=== PATIENT | male | born 1975 | race Caucasian/White ===

== ENCOUNTER 2024-06-17 18:17 | Inpatient (IN) | payer BC ==
[~2024-06-17] VITALS: Ht 190.5 cm; Wt 106.6 kg
[2024-06-17 18:44] VITALS: TEMP 98.9
[2024-06-17 19:02] LABS: BASOPHILS % 0.2 % (0.0-1.0); EOSINOPHILS # (AUTO) 0.1 (0.0-0.4); EOSINOPHILS % 0.4 % (0.0-6.0); HEMATOCRIT 49.5 % (38.2-49.6); HEMOGLOBIN 17.3 g/dL (14.0-18.0); LYMPHOCYTES # (AUTO) 2.3 (1.0-3.2); LYMPHOCYTES % 20.1 % (18.0-39.1); MEAN CORPUSCULAR HEMOGLOBIN 31.8 pg (28-32); MEAN CORPUSCULAR HGB CONC 34.9 g/dL (31-35); MONOCYTES # (AUTO) 0.7 (0.2-0.8); MONOCYTES % 5.7 % (4.4-11.3); NEUTROPHILS # (AUTO) 8.4 (2.1-6.9); NEUTROPHILS % 73.2 % (38.7-80.0); PLATELET COUNT 272 x10e3/uL (140-360); RED BLOOD COUNT 5.44 x10e6/uL (4.3-5.7); RED CELL DISTRIBUTION WIDTH 12.4 % (11.7-14.4); WHITE BLOOD COUNT 11.49 x10e3/uL (4.8-10.8)
[2024-06-17 19:18] LABS: ALBUMIN 4.9 g/dL (3.5-5.0); ALBUMIN/GLOBULIN RATIO 1.7 (0.8-2.0); CALCIUM 10.4 mg/dL (8.4-10.2); CREATININE, SERUM 0.95 mg/dL (0.72-1.25); TOTAL PROTEIN 7.8 g/dL (6.5-8.1)
[2024-06-17] MEDS ORDERED: IOPAMIDOL 370 MG/ML 100 ML INFUS..BTL INJ ONE (19:29)
[2024-06-17] MEDS: SODIUM CHLORIDE 0.9% 1000ML 1,000 ML IV ONE (20:20)
[2024-06-17 20:21] VITALS: PULSE 95; RESP 20
[2024-06-17 20:55] LABS: BILIRUBIN,URINE NEGATIVE (NEGATIVE); CLARITY,URINE SL CLOUDY (CLEAR); COLOR,URINE YELLOW (YELLOW); GLUCOSE, URINE 500 (NEGATIVE); KETONES,URINE TRACE (NEGATIVE); LEUKOCYTE ESTERASE ,URINE NEGATIVE (NEGATIVE); NITRITE,URINE NEGATIVE (NEGATIVE); PH,URINE 5.5 (5 - 7); PROTEIN,URINE DIPSTICK NEGATIVE (NEGATIVE); URINE UROBILINOGEN 0.2 mg/dL (0.2 - 1)
[2024-06-17 21:10] LABS: BACTERIA,URINE MODERATE /HPF; EPITHELIAL CELLS,URINE MODERATE /LPF
[2024-06-17] MEDS: Morphine 4mg INJECTION 4 MG/ML INJ IV ONE (21:13)
[2024-06-17] MEDS: SODIUM CHLORIDE 0.9% 250ML IRRIG IR SCH (21:30)
[2024-06-17] MEDS ORDERED: ONDANSETRON HCL INJ 2MG/ML 2ML 2 MG/ML VIAL IV PRN (22:00)
[2024-06-17] MEDS: BENZOCAINE 20% SPR 60 ML CAN MT ONE (23:09)
[2024-06-17] MEDS: ONDANSETRON HCL INJ 2MG/ML 2ML 2 MG/ML VIAL IV STA (23:43)
[2024-06-17] MEDS ORDERED: LABETALOL HCL 20 ML ONE (23:54)
[2024-06-18] VITALS (7 sets, daily range): BP systolic 169–192; BP diastolic 96–114; PULSE 85–110; RESP 16–20; TEMP 97.5–98.2; O2SAT 95–99
[2024-06-18] MEDS: LABETALOL HCL 5 MG/ML 20ML VIAL IV PRN (00:10)
[2024-06-18] MEDS: KETOROLAC TROMETHAMINE 30 MG/ML VIAL IV STA (00:25)
[2024-06-18] MEDS: SODIUM CHLORIDE 0.9% 1000ML 1,000 ML IV SCH ×2 (00:27→21:16)
[2024-06-18] MEDS: Morphine 4mg INJECTION 4 MG/ML INJ IV PRN (01:39)
[2024-06-18] MEDS ORDERED: ROSUVASTATIN CA20 MG PO (01:46)
[2024-06-18] MEDS ORDERED: LOSARTAN POTAS100 MG PO (01:46)
[2024-06-18] MEDS ORDERED: CARVEDILOL3.125 MG PO (01:46)
[2024-06-18] MEDS ORDERED: XIGDUO XR 10 M1 EAC1 PO (01:46)
[2024-06-18 05:41] LABS: BASOPHILS % 0.2 % (0.0-1.0); EOSINOPHILS % 0.3 % (0.0-6.0); HEMATOCRIT 49.1 % (38.2-49.6); HEMOGLOBIN 16.7 g/dL (14.0-18.0); LYMPHOCYTES # (AUTO) 1.9 (1.0-3.2); LYMPHOCYTES % 17.8 % (18.0-39.1); MEAN CORPUSCULAR HEMOGLOBIN 31.9 pg (28-32); MEAN CORPUSCULAR VOLUME 93.7 fL (81-99); MONOCYTES # (AUTO) 0.7 (0.2-0.8); MONOCYTES % 6.7 % (4.4-11.3); NEUTROPHILS # (AUTO) 8.1 (2.1-6.9); NEUTROPHILS % 74.6 % (38.7-80.0); PLATELET COUNT 243 x10e3/uL (140-360); RED BLOOD COUNT 5.24 x10e6/uL (4.3-5.7); RED CELL DISTRIBUTION WIDTH 12.5 % (11.7-14.4); WHITE BLOOD COUNT 10.85 x10e3/uL (4.8-10.8)
[2024-06-18 05:54] LABS: INR 0.99; PARTIAL THROMBOPLASTIN TIME 28.6 seconds (23.8-35.5); PROTHROMBIN TIME 13.6 seconds (11.9-14.5)
[2024-06-18 06:01] LABS: ALBUMIN 4.4 g/dL (3.5-5.0); ALBUMIN/GLOBULIN RATIO 1.6 (0.8-2.0); ANION GAP 13.6 mmol/L (8-16); CALCIUM 9.9 mg/dL (8.4-10.2); CREATININE, SERUM 0.92 mg/dL (0.72-1.25); POTASSIUM 3.6 mmol/L (3.5-5.1); TOTAL PROTEIN 7.1 g/dL (6.5-8.1)
[2024-06-18] MEDS ORDERED: DEXTROSE 50% SYRINGE 50 ML IV PRN (11:45)
[2024-06-18] MEDS ORDERED: FAMOTIDINE 20 MG/2 ML VIAL IV ONE ×2 (12:12→13:47)
[2024-06-18] MEDS ORDERED: ROCURONIUM BROMIDE 10 MG/ML 5ML VIAL IV ONE (12:12)
[2024-06-18] MEDS ORDERED: ONDANSETRON HCL INJ 2MG/ML 2ML 2 MG/ML VIAL ONE (12:12)
[2024-06-18] MEDS ORDERED: GLYCOPYRROLATE INJ 0.2 MG/ML VIAL ONE (12:12)
[2024-06-18] MEDS ORDERED: METOCLOPRAMIDE HCL 10 MG/2ML VIAL ONE ×2 (12:12→13:48)
[2024-06-18] MEDS ORDERED: SEVOFLURANE INHAL SOLN 250 ML PEN BTL ONE (12:12)
[2024-06-18] MEDS ORDERED: ACETAMINOPHEN 1000 MG/100 ML IV ONE (12:12)
[2024-06-18] MEDS ORDERED: DEXMEDETOMIDINE HCL 200 MCG/2 ML VIAL ONE (12:12)
[2024-06-18] MEDS ORDERED: DEXAMETHASONE SOD PHOS INJ 4 MG/ML SDV ONE (12:12)
[2024-06-18] MEDS ORDERED: LIDOCAINE HCL 2% LOCAL INJ 5 ML SDV VIAL INJ ONE (12:12)
[2024-06-18] MEDS ORDERED: PROPOFOL IV EMULSION 10 MG/ML 20 ML VIAL ONE (12:12)
[2024-06-18] MEDS ORDERED: SUGAMMADEX SODIUM 200 MG/2 ML VIAL IV ONE ×2 (12:12→13:48)
[2024-06-18] MEDS ORDERED: SUCCINYLCHOLINE CHLORIDE 20 MG/ML 10ML VIAL ONE ×2 (12:12→13:10)
[2024-06-18] MEDS ORDERED: MIDAZOLAM HCL 2 MG/2 ML VIAL ONE (12:36)
[2024-06-18] MEDS ORDERED: FENTANYL CITRATE/PF 100MCG/2 ML INJ ONE (12:36)
[2024-06-18] MEDS ORDERED: Morphine 10mg syringe 10 MG/ML INJ ONE (12:36)
[2024-06-18] MEDS ORDERED: BUPIVACAINE 0.25% 30ML SDV ONE (13:03)
[2024-06-18] MEDS ORDERED: ACETAMINOPHEN 1000 MG/100 ML 100 ML IV ONE (13:03)
[2024-06-18] MEDS ORDERED: SODIUM CHLORIDE 0.9% 1000ML 1,000 ML IV SCH ×2 (13:30→15:00)
[2024-06-18] MEDS ORDERED: SODIUM CHLORIDE 0.9% 250ML IRRIG IR SCH (15:00)
[2024-06-18] MEDS: HYDRALAZINE HCL 20 MG/ML VIAL ONE (15:55)
[2024-06-18] MEDS: KETOROLAC TROMETHAMINE 30 MG/ML VIAL IV PRN (21:00)
[2024-06-19] VITALS (7 sets, daily range): BP systolic 139–161; BP diastolic 88–103; PULSE 111–120; RESP 18–22; TEMP 97.5–98.4; O2SAT 96–98
[2024-06-19] MEDS: HYDROMORPHONE 1MG/1ML INJ IV PRN (01:10)
[2024-06-19 05:54] LABS: BASOPHILS % 0.2 % (0.0-1.0); EOSINOPHILS # (AUTO) 0.1 (0.0-0.4); EOSINOPHILS % 0.6 % (0.0-6.0); HEMATOCRIT 44.5 % (38.2-49.6); HEMOGLOBIN 14.9 g/dL (14.0-18.0); LYMPHOCYTES # (AUTO) 1.8 (1.0-3.2); LYMPHOCYTES % 14.6 % (18.0-39.1); MEAN CORPUSCULAR HEMOGLOBIN 31.9 pg (28-32); MEAN CORPUSCULAR HGB CONC 33.5 g/dL (31-35); MEAN CORPUSCULAR VOLUME 95.3 fL (81-99); MONOCYTES # (AUTO) 1.4 (0.2-0.8); MONOCYTES % 11.4 % (4.4-11.3); NEUTROPHILS # (AUTO) 9.1 (2.1-6.9); PLATELET COUNT 280 x10e3/uL (140-360); RED BLOOD COUNT 4.67 x10e6/uL (4.3-5.7); RED CELL DISTRIBUTION WIDTH 12.8 % (11.7-14.4); WHITE BLOOD COUNT 12.51 x10e3/uL (4.8-10.8)
[2024-06-19 06:15] LABS: ANION GAP 13.7 mmol/L (8-16); CALCIUM 9.1 mg/dL (8.4-10.2); CREATININE, SERUM 1.08 mg/dL (0.72-1.25); POTASSIUM 3.7 mmol/L (3.5-5.1)
[2024-06-19] MEDS ORDERED: METOPROLOL TARTRATE INJ 1 MG/ML VIAL IV PRN (11:00)
[2024-06-20] VITALS (8 sets, daily range): BP systolic 134–179; BP diastolic 86–107; PULSE 90–119; RESP 17–24; TEMP 97.7–99.1; O2SAT 95–100
[2024-06-20 05:58] LABS: BASOPHILS % 0.1 % (0.0-1.0); EOSINOPHILS # (AUTO) 0.2 (0.0-0.4); EOSINOPHILS % 1.9 % (0.0-6.0); HEMATOCRIT 37.2 % (38.2-49.6); HEMOGLOBIN 12.3 g/dL (14.0-18.0); LYMPHOCYTES # (AUTO) 1.5 (1.0-3.2); LYMPHOCYTES % 16.5 % (18.0-39.1); MEAN CORPUSCULAR HEMOGLOBIN 31.6 pg (28-32); MEAN CORPUSCULAR HGB CONC 33.1 g/dL (31-35); MEAN CORPUSCULAR VOLUME 95.6 fL (81-99); NEUTROPHILS # (AUTO) 6.5 (2.1-6.9); NEUTROPHILS % 70.1 % (38.7-80.0); PLATELET COUNT 182 x10e3/uL (140-360); RED BLOOD COUNT 3.89 x10e6/uL (4.3-5.7); RED CELL DISTRIBUTION WIDTH 12.8 % (11.7-14.4); WHITE BLOOD COUNT 9.29 x10e3/uL (4.8-10.8)
[2024-06-20 06:23] LABS: ANION GAP 11.9 mmol/L (8-16); CALCIUM 9.2 mg/dL (8.4-10.2); CREATININE, SERUM 0.88 mg/dL (0.72-1.25); POTASSIUM 3.9 mmol/L (3.5-5.1)
[2024-06-20] MEDS: HYDRALAZINE HCL 20 MG/ML VIAL IV PRN (12:52)
[2024-06-20] MEDS: ATORVASTATIN 40 MG TAB PO SCH (20:05)
[2024-06-20] MEDS: CARVEDILOL 3.125 MG TAB PO SCH (20:06)
[2024-06-20] MEDS: HYDROCODONE/APAP 7.5MG-325MG 1 EA TAB PO PRN (23:27)
[2024-06-21] VITALS (7 sets, daily range): BP systolic 154–159; BP diastolic 8–102; PULSE 66–92; RESP 18–20; TEMP 97.6–98.6; O2SAT 98–100
[2024-06-21] MEDS: LOSARTAN POTASSIUM 100 MG TAB PO SCH (05:51)
[2024-06-21 07:33] LABS: BASOPHILS % 0.2 % (0.0-1.0); EOSINOPHILS # (AUTO) 0.4 (0.0-0.4); EOSINOPHILS % 3.7 % (0.0-6.0); HEMATOCRIT 35.2 % (38.2-49.6); HEMOGLOBIN 11.7 g/dL (14.0-18.0); LYMPHOCYTES # (AUTO) 1.9 (1.0-3.2); LYMPHOCYTES % 20.1 % (18.0-39.1); MEAN CORPUSCULAR HEMOGLOBIN 31.6 pg (28-32); MEAN CORPUSCULAR HGB CONC 33.2 g/dL (31-35); MEAN CORPUSCULAR VOLUME 95.1 fL (81-99); MONOCYTES # (AUTO) 0.8 (0.2-0.8); MONOCYTES % 8.2 % (4.4-11.3); NEUTROPHILS # (AUTO) 6.4 (2.1-6.9); NEUTROPHILS % 67.5 % (38.7-80.0); PLATELET COUNT 196 x10e3/uL (140-360); RED CELL DISTRIBUTION WIDTH 12.6 % (11.7-14.4); WHITE BLOOD COUNT 9.49 x10e3/uL (4.8-10.8)
[2024-06-21 07:55] LABS: ANION GAP 12.5 mmol/L (8-16); CALCIUM 8.8 mg/dL (8.4-10.2); CREATININE, SERUM 0.71 mg/dL (0.72-1.25); POTASSIUM 3.5 mmol/L (3.5-5.1)
== END 2024-06-21 17:15 | disposition home or self-care (01) | DRG 330 ==
LOC: ER 19:00 → ERHOLD 21:57 → MED/SURG3 06-18 00:01
PROVIDERS: ADMIT Internal Medicine; ATTEND Internal Medicine
PROC: 0D9670Z Drainage of Stomach with Drainage Device, Via Natural or Artificial Opening (ICD-10-PCS; 2024-06-17)
PROC: 0DB80ZZ Excision of Small Intestine, Open Approach (ICD-10-PCS; principal; 2024-06-18 13:04)
PROC: 0WUF0JZ Supplement Abdominal Wall with Synthetic Substitute, Open Approach (ICD-10-PCS; 2024-06-18 13:04)
DX: K42.1 Umbilical hernia with gangrene (principal); C17.2 Malignant neoplasm of ileum; I10 Essential (primary) hypertension; K76.0 Fatty (change of) liver, not elsewhere classified; R73.03 Prediabetes; R00.0 Tachycardia, unspecified; E16.2 Hypoglycemia, unspecified
CPT/HCPCS: 36415; 71045; 74177; 80048; 80053; 81001; 83690; 85025; 85610; 85730; 88302; 88307; 88309; 88342; 99252; 99284; C1781; J0330; J0360; J1100; J1170; J1885; J2001; J2250; J2270; J2405; J2470; J2543; J2765; J7030; Q9967